=== PATIENT | female | born 1985 | race Caucasian/White ===

== ENCOUNTER 2018-10-19 12:06 | Emergency (ER) | payer OTHER ==
[~2018-10-19] VITALS: Ht 165.1 cm; Wt 120.2 kg
== END 2018-10-19 14:22 | disposition home or self-care (01) ==
LOC: ER 12:06
DX: K52.9 Noninfective gastroenteritis and colitis, unspecified (principal)

== ENCOUNTER → 2019-04-01 | Day surgery (SDC) | payer OTHER | END | disposition home or self-care (01) | LOC: CIR.AMB 06:37 | DX: N72 Inflammatory disease of cervix uteri (principal) ==